=== PATIENT | male | born 1975 ===

== ENCOUNTER 2020-06-05 21:03 | Inpatient (IN) | payer OTHER ==
[~2020-06-05] VITALS: Ht 162.6 cm; Wt 79.9 kg
[~2020-06-05 21:03] MED LIST: CODE BLUE RESPONSE XX ONE; EPINEPHRINE SYRINGE 0.1 MG/ML, 10ML ONE; NALOXONE 1 MG/ML, 2ML ONE
[2020-06-05] MEDS ORDERED: ALBUTEROL 0.5%, 20ML NPPB ONE (21:30)
[2020-06-05] MEDS ORDERED: CALCIUM CHLORIDE 10%, 10ML SYR IVPush ONE (21:30)
[2020-06-05] MEDS ORDERED: PLEASE ENTER HEIGHT AND WEIGHT MC SCH (21:30)
[2020-06-05] MEDS ORDERED: INSULIN REGULAR 100 UNITS/ML, 3ML VIAL IVPush ONE (21:30)
[2020-06-05] MEDS ORDERED: PLEASE ENTER ALLERGIES MC SCH (21:30)
[2020-06-05] MEDS ORDERED: SODIUM BICARB 8.4%, 50ML SYRINGE IVPush ONE (21:30)
[2020-06-05] MEDS ORDERED: SODIUM BICARB 8.4%, 50ML SYRINGE ONE (21:34)
[2020-06-05] MEDS ORDERED: CALCIUM CHLORIDE 10%, 10ML SYR ONE ×2 (21:34)
[2020-06-05] MEDS ORDERED: SODIUM BICARBONATE 1 MEQ/ML, 50ML VIAL ONE (21:34)
[2020-06-05 21:45] LABS: BASOPHILS # (AUTO) 0.06 x10^3/uL (0-0.1); BASOPHILS % (AUTO) 0 % (0-1); EOSINOPHILS # (AUTO) 0.31 x10^3/uL (0-0.4); EOSINOPHILS % (AUTO) 2 % (1-7); LYMPHOCYTES # (AUTO) 4.92 x10^3/uL (1-3.4); LYMPHOCYTES % (AUTO) 30 % (22-44); MD NO; MEAN CORPUSCULAR HEMOGLOBIN 25.7 pg (27.5-34.5); MEAN CORPUSCULAR HGB CONC 31.6 g/dL (33.2-36.2); MEAN PLATELET VOLUME 8.7 fL (7.4-10.4); MONOCYTES # (AUTO) 0.79 x10^3/uL (0.2-0.8); MONOCYTES % (AUTO) 5 % (2-9); NEUTROPHILS # (AUTO) 10.13 x10^3/uL (1.8-6.8); NEUTROPHILS % (AUTO) 63 % (42-75); PLATELET COUNT 278 x10^3/uL (130-400); RED BLOOD COUNT 4.81 x10^6/uL (4.38-5.82)
[2020-06-05 21:57] LABS: ALANINE AMINOTRANSFERASE 505 U/L (12-78); ALBUMIN 2.5 g/dL (3.4-5.0); CHLORIDE 99 mmol/L (98-107); CREATININE 1.53 mg/dL (0.7-1.3)
[2020-06-05] MEDS: SODIUM BICARBONATE 8.4% 150 MEQ in DEXTROSE 5% 1,000 ML IV SCH (22:00)
[2020-06-05] MEDS ORDERED: NOREPINEPHRINE 8 MG in SODIUM CHLORIDE 0.9% 242 ML IV PRN ×3 (22:00→23:39)
[2020-06-05 22:01] LABS: ALKALINE PHOSPHATASE 123 U/L (45-117); BILIRUBIN,TOTAL 0.2 mg/dL (0.2-1.0); TOTAL PROTEIN 6.8 g/dL (6.4-8.2); TROPONIN I 0.022 ng/mL (0.000-0.045)
[2020-06-05 22:06] LABS: CALCIUM 17.1 mg/dL (8.5-10.1)
[2020-06-05 22:07] LABS: ANION GAP 23 mmol/L (5-15)
--- NOTE | 2020-06-05 22:20 | NUR ---
IT WAS REPORTED BY [facility] AND FAMILY THAT PT WAS EATING PRIM RIM AT [facility] WHEN PT APPEARED TO CHOKE WHILE EATING PRIM RIB. CPR WAS PERFORMED BY BYSTANDERS AND [facility]. PT WAS IN PEA AT ER CONTACT WITH NO ADVANCED AIRWAY ESTABLISHED. BVM, ACLS CPR AND OPA WAS PROVIDED FOR PT VENTALATION ON HIGH FLOW O2. PT HAD copious amounts of vomit and airway. PT SUCTIONED MULTIPLE TIMES UNTIL AIRWAY WAS CLEAR ENOUGH FOR ET TUB TO BE PLACED. LARGE PIECES OF MEAT WHERE IN AIRWAY. PT REGAINED PULSES BUT REMAINED WITH GCS OF 3.
--- NOTE | 2020-06-05 22:31 | NUR ---
PT STARTED ON 0.1 OF LEVOPHED WITH PT B/P STILL LOW. PROVIDER GAVE VERBAL ORDER TO MOVE LEVOPHED TO 0.7 AND BACK OFF FROM THERE TO OBTAIN A ACCEPTABLE BLOOD PRESSURE PT LEVO BACKED DOWN TO 0.20 AT THIS TIME
[2020-06-05] MEDS ORDERED: SODIUM PHOSPHATE 20 MMOL in SODIUM CHLORIDE 0.9% 250 ML IVPB PRN ×2 (22:56→23:44)
[2020-06-05] MEDS ORDERED: ACETAMINOPHEN 325 MG TABLET PO PRN (23:00)
[2020-06-05] MEDS ORDERED: KSCALE TO 4.0 IV SCH (23:00)
[2020-06-05] MEDS ORDERED: FENTANYL PF 1,000 MCG in SODIUM CHLORIDE 0.9% 80 ML IV PRN (23:00)
[2020-06-05] MEDS ORDERED: CALCIUM CHLORIDE 13.6 MEQ in SODIUM CHLORIDE 0.9% 100 ML IVPB PRN (23:00)
[2020-06-05] MEDS ORDERED: ONDANSETRON 2MG/ML, 2ML IVPush PRN (23:00)
[2020-06-05] MEDS ORDERED: ENALAPRILAT 1.25 MG/ML, 2ML IVPush PRN (23:00)
[2020-06-05] MEDS ORDERED: morphine SULFATE 10 MG/ML, 1ML IVPush PRN (23:00)
[2020-06-05] MEDS ORDERED: ARTIFICIAL TEARS OINT 3.5 GM EACHEYE SCH (23:00)
[2020-06-05] MEDS ORDERED: MAGNESIUM SULFATE 1 GM in DEXTROSE 5% 100 ML IVPB PRN (23:00)
[2020-06-05] MEDS: BUSPIRONE 10 MG TABLET NG SCH (23:00)
[2020-06-05] MEDS ORDERED: LABETALOL 5MG/ML, 20ML IVPush PRN (23:00)
[2020-06-05] MEDS ORDERED: INSULIN LISPRO 100 UNITS/ML, PEN SQ-INSULIN PRN (23:30)
[2020-06-05] MEDS ORDERED: CEFTRIAXONE PMX 1GM/50ML 50 ML IV ONE (23:30)
[2020-06-05] MEDS ORDERED: PROPOFOL 100 ML IV PRN (23:39)
[2020-06-06] MEDS ORDERED: LACTULOSE 20 GM/30 ML UDC NG PRN
[2020-06-06] MEDS ORDERED: CALCIUM CHLORIDE 13.6 MEQ in SODIUM CHLORIDE 0.9% 100 ML IVPB PRN
[2020-06-06] MEDS ORDERED: VECURONIUM 10 MG IVPush PRN
[2020-06-06] MEDS ORDERED: LIDOCAINE-MPF 1%, 2ML ENDO PRN
[2020-06-06] MEDS ORDERED: DEXTROSE 50%, 50ML SYRINGE IVPush PRN
[2020-06-06] MEDS ORDERED: FENTANYL PF 1,000 MCG in SODIUM CHLORIDE 0.9% 80 ML IV PRN
[2020-06-06] MEDS ORDERED: SENNA 176 MG/5 ML ORAL SOL NG PRN
[2020-06-06] MEDS ORDERED: PHARMACY MAY ADJ FOR RENAL FX MC SCH
[2020-06-06] MEDS ORDERED: DEXTROSE 4 GM TAB.CHEW PO PRN
[2020-06-06] MEDS ORDERED: BISACODYL 10 MG SUPP PR PRN
[2020-06-06] MEDS ORDERED: MIDAZOLAM 1 MG/ML, 2ML IVPush PRN
[2020-06-06] MEDS ORDERED: SENNA/DOCUSATE TABLET NG PRN
[2020-06-06] MEDS ORDERED: FENTANYL PF 100 MCG/2ML IVPush PRN
[2020-06-06] MEDS ORDERED: GLUCAGON 1 MG IM PRN
--- NOTE | 2020-06-06 00:08 | NUR ---
PT PLACED ON [employer] (powering [employer]) COOLING SYSTEM WITH [employer] RANGE OF 33 DEG C. PER UNIT ABBY SOUZA
[2020-06-06 00:15] LABS: TROPONIN I 0.456 ng/mL (0.000-0.045)
[2020-06-06] MEDS ORDERED: CEFTRIAXONE PMX 1GM/50ML 50 ML ONE (00:26)
[2020-06-06 00:28] LABS: INTERNATIONAL NORMALIZED RATIO 0.98 (0.93-1.1); PROTHROMBIN TIME 10.4 Seconds (9.6-11.5)
--- NOTE | 2020-06-06 00:37 | NUR ---
PT SISTER "CHANDRIKA" IN [place] PHONE [phone] WOULD LIKE TO BE UPDATED WITH ANY CHANGES PT OTHER "DEIRDRE" SISTER PHONE = [phone]
--- NOTE | 2020-06-06 00:39 | NUR ---
PT X PHONE [phone]
[2020-06-06] MEDS ORDERED: PIPERACILLIN/TAZO/PMX 3.375GM 50 ML ONE ×4 (00:49→20:08)
[2020-06-06] MEDS ORDERED: HEPARIN 5,000 UNITS/ML, 1ML ONE ×3 (00:50→17:08)
[2020-06-06] MEDS ORDERED: FAMOTIDINE 20 MG/2 ML ONE ×2 (00:50→08:27)
[2020-06-06] MEDS: FAMOTIDINE 20 MG/2 ML IV SCH ×2 (00:55→12:00)
[2020-06-06] MEDS: HEPARIN 5,000 UNITS/ML, 1ML SQ SCH ×4 (00:56→23:00)
--- NOTE | 2020-06-06 01:45 | NUR ---
Spoke with Sherri from [facility] as patient is possibly a canidate for Organ donation. Sherri states that at this time patient is suitable for organ donation, but more information will be needed regarding patients care and we should be getting another phone call in about 30 minutes asking for more information. Reference # for case at this time is [id number] None of this above information has been relayed to ex at bedside as donor network asked that none of this information is relayed to ANY family/friends of patient as the donor network team themselves will have this conversation with the family/friends of patient when the time is ready.
[2020-06-06] MEDS ORDERED: INSULIN INFUSION FOR ICU PROTOCOL XX PRN (04:00)
[2020-06-06] MEDS: KSCALE TO 4.0 IV SCH ×6 (04:00→20:00)
[2020-06-06] MEDS ORDERED: REGULAR INSULIN 100 UNITS in SODIUM CHLORIDE 0.9% 99 ML IV PRN (04:00)
[2020-06-06] MEDS ORDERED: INSULIN REGULAR 100 UNITS/ML, 3ML VIAL IV ONE ×2 (04:00→11:00)
[2020-06-06 04:18] LABS: MEAN CORPUSCULAR HEMOGLOBIN 25.2 pg (27.5-34.5); MEAN CORPUSCULAR HGB CONC 31.1 g/dL (33.2-36.2); MEAN PLATELET VOLUME 8.1 fL (7.4-10.4); PLATELET COUNT 425 x10^3/uL (130-400); RED BLOOD COUNT 5.31 x10^6/uL (4.38-5.82); RED CELL DISTRIBUTION WIDTH 13.6 % (9.4-14.8)
[2020-06-06] MEDS ORDERED: INSULIN SINGLE DOSE, ER ONE (04:21)
[2020-06-06 04:24] LABS: ANION GAP 12 mmol/L (5-15); CALCIUM 9.4 mg/dL (8.5-10.1); CHLORIDE 104 mmol/L (98-107); CREATININE 1.57 mg/dL (0.7-1.3); TRIGLYCERIDES 198 mg/dL (50-200)
[2020-06-06 04:41] LABS: BASOPHILS % (AUTO) 0 % (0-1); EOSINOPHILS # (AUTO) 0.04 x10^3/uL (0-0.4); EOSINOPHILS % (AUTO) 0 % (1-7); LYMPHOCYTES # (AUTO) 0.66 x10^3/uL (1-3.4); LYMPHOCYTES % (AUTO) 2 % (22-44); MD SCAN; MONOCYTES # (AUTO) 0.09 x10^3/uL (0.2-0.8); MONOCYTES % (AUTO) 0 % (2-9); NEUTROPHILS # (AUTO) 26.71 x10^3/uL (1.8-6.8); NEUTROPHILS % (AUTO) 97 % (42-75)
[2020-06-06 05:38] LABS: MICROSCOPIC INDICATED
[2020-06-06 05:44] LABS: AMPHETAMINE SCREEN, URINE Negative (Negative); BARBITURATE SCREEN, URINE Negative (Negative); BENZODIAZEPINE SCREEN, URINE Negative (Negative); CANNABINOID SCREEN, URINE Negative (Negative); COCAINE SCREEN, URINE Negative (Negative); METHADONE SCREEN, URINE Negative (Negative); OPIATE SCREEN, URINE Negative (Negative)
--- NOTE | 2020-06-06 05:55 | NUR ---
per insulin infusion for intensive care protocol sheet, decrease of 43mg/dL/hr since last sugar, no change in insulin infusion rate
[2020-06-06] MEDS: PIPERACILLIN/TAZO/PMX 3.375GM 50 ML IV SCH ×4 (06:00→18:00)
--- NOTE | 2020-06-06 06:19 | NUR ---
AWATING MEDS FROM PHARMACY FOR PT K SCALE ORDERS
[2020-06-06] MEDS ORDERED: ALBUTEROL SULFATE 2.5 MG/3 ML ONE ×4 (06:20→19:03)
[2020-06-06] MEDS: ALBUTEROL SULFATE 2.5 MG/3 ML INLINE SCH ×5 (06:21→19:14)
--- NOTE | 2020-06-06 06:21 | NUR ---
PT RESTING IN BED, PT STILL HAS GCS OF 3 WITH OUT SEDATION. PT B/P MAINTAINED WITH LEVOPHED TO A MAP ABOVE 80. VETERANS' COUNSELOR WILL CONTINUE TO MONITOR PT VSS
[2020-06-06] MEDS ORDERED: POTASSIUM CHLORIDE PMX 100 ML IV ONE (06:30)
[2020-06-06] MEDS: MAGNESIUM SULFATE 1 GM in DEXTROSE 5% 100 ML IVPB PRN ×2 (06:36→17:20)
[2020-06-06] MEDS: BUSPIRONE 10 MG TABLET NG SCH ×5 (07:00→16:51)
[2020-06-06] MEDS: SODIUM CHLORIDE FLUSH 10ML SYR IVF SCH ×2 (08:30→21:00)
[2020-06-06] MEDS: ARTIFICIAL TEARS OINT 3.5 GM EACHEYE SCH ×3 (08:31→16:09)
[2020-06-06] MEDS: NOREPINEPHRINE 8 MG in SODIUM CHLORIDE 0.9% 242 ML IV PRN (08:42)
[2020-06-06] MEDS ORDERED: POTASSIUM CHLORIDE 30 MEQ in SODIUM CHLORIDE 0.9% 100 ML IV ONE ×4 (09:00→21:30)
[2020-06-06] MEDS ORDERED: FAMOTIDINE 20 MG/2 ML IVPush SCH (09:00)
[2020-06-06] MEDS ORDERED: SODIUM PHOSPHATE 20 MMOL in SODIUM CHLORIDE 0.9% 250 ML IV ONE (09:30)
[2020-06-06] MEDS ORDERED: SODIUM PHOSPHATE 20 MMOL in SODIUM CHLORIDE 0.9% 500 ML IV ONE (10:01)
--- NOTE | 2020-06-06 10:03 | NUR ---
BEDSIDE REPORT FROM JAMES BECK. PT RESTING IN [facility] INTUBATED WITH CLEAR BILATERAL LUNG SOUNDS. HYPOTHERMIA PROTOCOL IN PLACE AND IN COOLING PHASE. CURRENT CORE TEMP: 33.3C. HOB ELEVATED, OG IN PLACE. VENT: FiO2 81, PEEP 8 RR 18. ET 24 AT THE LIP WO GASTRIC SOUNDS. MAP >60, MANAGED WITH LEVOPHED AND MONITORED BY A-LINE. GOOD DISTAL CAP REFILL; PWD, W GOOD URINE OUTPUT. NSR ON MONITOR, HR 84.
--- NOTE | 2020-06-06 10:18 | NUR ---
CONTACTED [facility] REGARDING FSBS 700 AND ADJUSTMENT IN INSULIN ACCORDING TO PROTOCOL. NO ADDITIONAL ORDERS RECEIVED. TO CONTACT [facility] WITH FOLLOW UP FSBS IF NO IMPROVEMENT NOTED.
--- NOTE | 2020-06-06 10:21 | NUR ---
DISCUSSED CRITICAL LAB RESULT OF GLUCOSE AND CURRENT INSULIN GTT PROTOCOL WITH DR MYRICK. PER MD CONTINUE WITH PROTOCOL AND CALL WITH NEXT RESULT. INSULIN GTT VERIFIED WITH BHAVANA RAMIREZ AT THIS TIME.
[2020-06-06] MEDS ORDERED: DEXTROSE 50%, 50ML SYRINGE IV PRN (11:00)
[2020-06-06 11:17] LABS: ANION GAP 13 mmol/L (5-15); CALCIUM 9.2 mg/dL (8.5-10.1); CHLORIDE 107 mmol/L (98-107); CREATININE 1.77 mg/dL (0.7-1.3)
--- NOTE | 2020-06-06 11:37 | NUR ---
[facility]FTU UPDATED TO CRITICAL LABS AND ADJUSTMENTS MADE TO LEVOPHED. NO NEW ORDERS RECEIVED AT THIS TIME. MAP >60. NO MOTTELING NOTED.
--- NOTE | 2020-06-06 11:43 | NUR ---
PHARMACIST CONTACTED, TO SEND [facility] GTT
--- NOTE | 2020-06-06 13:09 | NUR ---
CONTINUED CLOSE MONITORING. HYPOTHERMIA PROTOCOL CONTINUED. NO SHIVERING NOTED. NO SEDATION IN PLACE. CONTINUED UNRESPONSIVE TO PAINFUL STIMULI. MAP SUFFICIENTLY MAINTAINED WITH VASOPRESSORS, <3S DISTAL CAP REFILL. EX AT BEDSIDE AND UPDATED TO POC. ALL QUESTIONS ANSWERED. DR MYRICK AWARE AND HAS AGREED TO SPEAK WITH FAMILY. ECHO CANCELLED PER GENAROU ORDER
[2020-06-06] MEDS: SODIUM BICARBONATE 8.4% 150 MEQ in DEXTROSE 5% 1,000 ML IV SCH ×2 (14:05→21:00)
[2020-06-06 14:35] LABS: ANION GAP 11 mmol/L (5-15); CALCIUM 9.4 mg/dL (8.5-10.1); CHLORIDE 106 mmol/L (98-107)
[2020-06-06 14:38] LABS: CREATININE 1.92 mg/dL (0.7-1.3)
--- NOTE | 2020-06-06 14:46 | NUR ---
HYPOTENSION REFRACTORY TO PRESSER. DEFTU MADE AWARE. NEW ORDERS RECEIVED. REQUEST SENT TO PHARMACY FOR ADMISSIONAL MEDICATIONS
[2020-06-06] MEDS: VASOPRESSIN 20 UNIT in SODIUM CHLORIDE 0.9% 99 ML IV PRN (15:32)
--- NOTE | 2020-06-06 15:44 | NUR ---
IMPROVED MAP. ABLE TO DOWN TITRATE LEVOPHED. WILL HOLD VASOPRESSIN AT THIS TIME. DISTAL CAP REFILL REMAINS <3S; NO DECREASE IN UO NOTED. FAMILY REMAINS AT BEDSIDE.
--- NOTE | 2020-06-06 16:13 | NUR ---
TASK RN: REPORT OF PT FROM JAMES BATEMAN AND ASSUMING CARE OF PT AT THIS TIME. PT GLUCOSE INCREASED ON PUMP PER PROTOCOL. MEDICATIONS REQUESTED FROM PHARMACY VIA TUBE SYSTEM AT THIS TIME. CRITICAL RESULT RECEIVED FOR PT POTASSIUM. PHARMACY NOTIFIED OF CRITICAL VALUE. PT IS IN GURNEY WITH YADIEL AT THIS TIME.
--- NOTE | 2020-06-06 17:07 | NUR ---
MAG 1.7, MEDICATION REQUESTED FROM PHARMACY
--- NOTE | 2020-06-06 19:11 | NUR ---
BEDSIDE REPORT TO JAMES LOPEZ.
--- NOTE | 2020-06-06 19:23 | NUR ---
REPORT RECEIVED FROM JAMES PETER. WILL RESUME PATIENT CARE. PATIENT'S VITAL SIGNS STABLE. BLOOD GLUCOSE 511, NO TITRATION NECESSARY. GOOD CAP REFILL PRESENT BILATERALLY IN UPPER EXTREMITIES AND LOWER. 3+ PITTING EDEMA IN LOWER EXTREMITIES. PATIENT TOLERATING INTERVENTIONS WELL. PATIENT WILL BE TAKEN TO CT VIA GURNEY AND PLACED ON ICU BED.
--- NOTE | 2020-06-06 19:30 | NUR ---
PATIENT TAKEN TO CT WITH RESP, RN, TECH, VENT, MONITOR. PATIENT TOLERATED WELL. PATIENT MOVED TO ICU HOSPITAL BED TO IMPROVE PATIENT OUTCOMES. PATIENT REPOSITIONED INTO SUPINE FOR Q2HR POSITION CHANGES.
[2020-06-06] MEDS ORDERED: EPINEPHRINE SYRINGE 0.1 MG/ML, 10ML ONE (20:01)
[2020-06-06] MEDS ORDERED: SODIUM BICARBONATE 1 MEQ/ML, 50ML VIAL ONE (20:01)
--- NOTE | 2020-06-06 20:36 | NUR ---
LABS DRAWN AND SENT TO LAB.
--- NOTE | 2020-06-06 20:46 | NUR ---
TASK RN: HOSPITALIST CONTACTED REGARDING CT FINDINGS. PLAN TO CONTACT NEUROLOGY FOR CONSULT.
--- NOTE | 2020-06-06 21:05 | NUR ---
PHYSICIAN AT BEDSIDE WITH FAMILY NOTIFYING PATIENT'S FAMILY OF CT RESULTS. FAMILY TOLERATED NEWS WELL. INFORMATION WAS PROVIDED TO THE FAMILY REGARDING PLAN OF CARE, AND PATIENT'S WISHES. TRACY WILL EVALUATE PATIENT IN THE MORNING.
--- NOTE | 2020-06-06 21:17 | NUR ---
PT'S BS WAS 467; NO CHANGE NOTED BY PROTOCOL. DUAL CHECK WITH JAMES PETER
--- NOTE | 2020-06-06 22:31 | NUR ---
ABG COLLECTED TO MONITOR VENT SETTING CHANGES. RESPIRATORY AT BEDSIDE.
[2020-06-07] MEDS ORDERED: HEPARIN 5,000 UNITS/ML, 1ML ONE (00:14)
[2020-06-07] MEDS ORDERED: PIPERACILLIN/TAZO/PMX 3.375GM 50 ML ONE (00:14)
[2020-06-07] MEDS ORDERED: POTASSIUM CHLORIDE 30 MEQ in SODIUM CHLORIDE 0.9% 100 ML IV ONE ×5 (00:30→17:00)
[2020-06-07] MEDS: NOREPINEPHRINE 8 MG in SODIUM CHLORIDE 0.9% 242 ML IV PRN (01:25)
[2020-06-07] MEDS: MAGNESIUM SULFATE 1 GM in DEXTROSE 5% 100 ML IVPB PRN ×3 (01:30→16:52)
[2020-06-07] MEDS: REGULAR INSULIN 100 UNITS in SODIUM CHLORIDE 0.9% 99 ML IV PRN ×3 (02:15→13:25)
[2020-06-07 03:47] LABS: ANION GAP 8 mmol/L (5-15); CALCIUM 9.4 mg/dL (8.5-10.1); CHLORIDE 113 mmol/L (98-107); CREATININE 1.63 mg/dL (0.7-1.3)
[2020-06-07 03:51] LABS: MEAN CORPUSCULAR HEMOGLOBIN 25.8 pg (27.5-34.5); MEAN CORPUSCULAR HGB CONC 31.9 g/dL (33.2-36.2); MEAN PLATELET VOLUME 8.4 fL (7.4-10.4); PLATELET COUNT 257 x10^3/uL (130-400); RED BLOOD COUNT 4.85 x10^6/uL (4.38-5.82); RED CELL DISTRIBUTION WIDTH 13.2 % (9.4-14.8)
[2020-06-07 04:00] VITALS: BP 134/67
[2020-06-07] MEDS: KSCALE TO 4.0 IV SCH ×6 (04:00→20:00)
[2020-06-07] MEDS: ALBUTEROL SULFATE 2.5 MG/3 ML INLINE SCH ×5 (04:00→14:16)
[2020-06-07] MEDS: VASOPRESSIN 20 UNIT in SODIUM CHLORIDE 0.9% 99 ML IV PRN ×2 (04:07→13:25)
[2020-06-07 04:32] LABS: MD YES
[2020-06-07 05:14] LABS: <PLATELET ESTIMATE> ADEQUATE; <PLT MORPHOLOGY> NORMAL PLT MORPH; <RBC MORPHOLOGY> NORMAL; BAND#(MANUAL) 0.65 x10^3/uL; BANDS%(MANUAL) 4 % (0-7); LYMPH#(MANUAL) 0.65 x10^3/uL (1-3.4); LYMPHS% (MANUAL) 4 % (22-44); SEGS% (MANUAL) 92 % (42-75)
[2020-06-07] MEDS: PIPERACILLIN/TAZO/PMX 3.375GM 50 ML IV SCH ×2 (06:12)
[2020-06-07] MEDS ORDERED: VECURONIUM 10 MG IVPush PRN (07:30)
[2020-06-07] MEDS: POTASSIUM CHLORIDE 20 MEQ TAB.ER.PRT PO SCH ×2 (07:51→17:19)
[2020-06-07] MEDS: HEPARIN 5,000 UNITS/ML, 1ML SQ SCH ×2 (07:51→16:52)
[2020-06-07] MEDS: FAMOTIDINE 20 MG/2 ML IVPush SCH (07:52)
[2020-06-07] MEDS: SODIUM CHLORIDE FLUSH 10ML SYR IVF SCH ×2 (07:52→23:44)
[2020-06-07] MEDS: ARTIFICIAL TEARS OINT 3.5 GM EACHEYE SCH ×3 (08:00→18:36)
[2020-06-07] MEDS: AMPICILLIN/SULBACTAM 3 GM in SODIUM CHLORIDE 0.9% 100 ML IV SCH ×3 (09:57→21:11)
[2020-06-07] MEDS: BUSPIRONE 10 MG TABLET NG SCH ×3 (10:10→17:19)
[2020-06-07] MEDS: NOREPINEPHRINE 32 MG in SODIUM CHLORIDE 0.9% 218 ML IV PRN ×2 (13:26→23:44)
[2020-06-07] MEDS ORDERED: PHENYLEPHRINE 50 MG in SODIUM CHLORIDE 0.9% 245 ML IV PRN (20:00)
[2020-06-07] MEDS ORDERED: MAGNESIUM SULFATE/D5W 100 ML IVPB PRN (21:30)
[2020-06-08] MEDS: VASOPRESSIN 20 UNIT in SODIUM CHLORIDE 0.9% 99 ML IV PRN ×2 (00:41→07:55)
[2020-06-08] MEDS: HEPARIN 5,000 UNITS/ML, 1ML SQ SCH ×2 (00:41→08:21)
[2020-06-08] MEDS: ARTIFICIAL TEARS OINT 3.5 GM EACHEYE SCH ×2 (00:42→08:21)
[2020-06-08] MEDS: AMPICILLIN/SULBACTAM 3 GM in SODIUM CHLORIDE 0.9% 100 ML IV SCH ×2 (03:24→08:23)
[2020-06-08 03:42] LABS: MEAN CORPUSCULAR HEMOGLOBIN 25.3 pg (27.5-34.5); MEAN CORPUSCULAR HGB CONC 31.6 g/dL (33.2-36.2); MEAN PLATELET VOLUME 7.8 fL (7.4-10.4); PLATELET COUNT 212 x10^3/uL (130-400); RED BLOOD COUNT 4.57 x10^6/uL (4.38-5.82); RED CELL DISTRIBUTION WIDTH 13.6 % (9.4-14.8)
[2020-06-08] MEDS: KSCALE TO 4.0 IV SCH ×2 (03:55)
[2020-06-08 04:00] VITALS: BP 93/65
[2020-06-08 04:33] LABS: MD YES
[2020-06-08 04:36] LABS: BAND#(MANUAL) 2.45 x10^3/uL; BANDS%(MANUAL) 15 % (0-7); EOS#(MANUAL) 0.65 x10^3/uL (0.0-0.4); EOS% (MANUAL) 4 % (1-7); LYMPH#(MANUAL) 0.65 x10^3/uL (1-3.4); LYMPHS% (MANUAL) 4 % (22-44); MONOS#(MANUAL) 0.65 x10^3/uL (0.3-2.7); MONOS% (MANUAL) 4 % (2-9); REACTIVE LYMPHS # (MANUAL) 0.16 x10^3/uL (0-0); REACTIVE LYMPHS % (MANUAL) 1 % (0-0); SEGS% (MANUAL) 72 % (42-75)
[2020-06-08 04:37] LABS: <PLATELET ESTIMATE> ADEQUATE; <PLT MORPHOLOGY> NORMAL PLT MORPH; <RBC MORPHOLOGY> NORMAL; ANION GAP 10 mmol/L (5-15); CALCIUM 8.3 mg/dL (8.5-10.1); CHLORIDE 116 mmol/L (98-107); CREATININE 2.07 mg/dL (0.7-1.3)
[2020-06-08] MEDS: NOREPINEPHRINE 32 MG in SODIUM CHLORIDE 0.9% 218 ML IV PRN (07:55)
[2020-06-08] MEDS ORDERED: INSULIN GLARGINE 100 UNITS/ML, PEN SQ-INSULIN SCH (08:00)
[2020-06-08] MEDS: SODIUM CHLORIDE FLUSH 10ML SYR IVF SCH (08:21)
[2020-06-08] MEDS: FAMOTIDINE 20 MG/2 ML IVPush SCH (08:21)
[2020-06-08] MEDS ORDERED: INSULIN LISPRO 100 UNITS/ML, PEN SQ-INSULIN SCH (11:00)
== END 2020-06-08 10:06 | disposition expired | DRG 208 ==
LOC: SUATTDRO 22:56 → ED 06-06 00:26 → EDIP 06-06 00:48 → CCU 06-07 00:44 → UNDODISIN 06-08 10:06
PROVIDERS: ADMIT Hospitalist; ATTEND Internal Medicine
PROC: 5A1945Z Respiratory Ventilation, 24-96 Consecutive Hours (ICD-10-PCS; principal; 2020-06-06)
PROC: 0BH17EZ Insertion of Endotracheal Airway into Trachea, Via Natural or Artificial Opening (ICD-10-PCS; 2020-06-06)
PROC: 0T9B70Z Drainage of Bladder with Drainage Device, Via Natural or Artificial Opening (ICD-10-PCS; 2020-06-06)
DX: U07.1 COVID-19 (principal); A41.89 Other specified sepsis; J96.01 Acute respiratory failure with hypoxia; J69.0 Pneumonitis due to inhalation of food and vomit; G93.41 Metabolic encephalopathy; N17.0 Acute kidney failure with tubular necrosis; R65.21 Severe sepsis with septic shock; E43 Unspecified severe protein-calorie malnutrition; J12.89 Other viral pneumonia; K72.00 Acute and subacute hepatic failure without coma; E87.2 Acidosis; J81.1 Chronic pulmonary edema; G93.1 Anoxic brain damage, not elsewhere classified; I46.9 Cardiac arrest, cause unspecified; I95.9 Hypotension, unspecified; E11.65 Type 2 diabetes mellitus with hyperglycemia; E87.6 Hypokalemia; E83.52 Hypercalcemia; R74.0 Nonspecific elevation of levels of transaminase and lactic acid dehydrogenase [LDH]; D72.829 Elevated white blood cell count, unspecified; D47.3 Essential (hemorrhagic) thrombocythemia; E83.42 Hypomagnesemia; E88.09 Other disorders of plasma-protein metabolism, not elsewhere classified; E87.5 Hyperkalemia; Z68.30 Body mass index [BMI] 30.0-30.9, adult
CPT/HCPCS: 36415; 36600; 96361; 96374; 96375; 99291; 99292; J3490; J7613; 70450; 71045; 80047; 80048; 80053; 80307; 81001; 82330; 82533; 82803; 82947; 82962; 83605; 83735; 83880; 84100; 84132; 84478; 84484; 85025; 85610; 87040; 87070; 87077; 87081; 87147; 87186; 87205; 92950; 93005; 94002; 94003; 94640; G0378; J0295; J0696; J1644; J1815; J2543; J3475; J3480; J7070; J2310; J2370; J7040; J7050

== ENCOUNTER 2020-06-08 10:06 | Inpatient (IN) | payer OTHER ==
[~2020-06-08] VITALS: Ht 162.6 cm; Wt 79.9 kg
[2020-06-08] MEDS ORDERED: MAGNESIUM SULFATE PMX 2GM/50ML 50 ML IVPB PRN (14:30)
[2020-06-08] MEDS ORDERED: POTASSIUM CHLORIDE PMX 20MEQ/100 ML IVPB PRN ×2 (14:30→15:30)
[2020-06-08] MEDS ORDERED: CALCIUM CHLORIDE 13.6 MEQ in SODIUM CHLORIDE 0.9% 50 ML IV PRN (14:30)
[2020-06-08] MEDS ORDERED: MAGNESIUM SULFATE PMX 4GM/100M 100 ML IVPB PRN (14:30)
[2020-06-08] MEDS ORDERED: PIPERACILLIN/TAZO 3.375 GM in SODIUM CHLORIDE 0.9% 50 ML IVPB SCH (14:30)
[2020-06-08] MEDS ORDERED: REGULAR INSULIN 100 UNITS in SODIUM CHLORIDE 0.9% 99 ML IV SCH (14:30)
[2020-06-08] MEDS ORDERED: DOPAMINE/D5W PMX 250 ML IV PRN (14:30)
[2020-06-08] MEDS ORDERED: DEXTROSE 50%, 50ML SYRINGE IVPush PRN (14:30)
[2020-06-08] MEDS ORDERED: POTASSIUM CHLORIDE 40 MEQ in SODIUM CHLORIDE 0.9% 100 ML IV PRN ×3 (14:30→16:00)
[2020-06-08] MEDS ORDERED: PANTOPRAZOLE 40 MG IV IV SCH (14:30)
[2020-06-08] MEDS: PIPERACILLIN/TAZO 3.375 GM in SODIUM CHLORIDE 0.9% 50 ML IVPB SCH (14:30)
[2020-06-08] MEDS ORDERED: DEXTROSE 5% 1,000 ML IV SCH ×3 (14:30→15:24)
[2020-06-08] MEDS ORDERED: LEVOTHYROXINE 200 MCG in SODIUM CHLORIDE 0.9% 500 ML IV SCH (14:30)
[2020-06-08] MEDS ORDERED: FLUCONAZOLE 200 MG/100 ML 100 ML IV PRN (14:30)
[2020-06-08 14:55] LABS: MEAN CORPUSCULAR HEMOGLOBIN 25.8 pg (27.5-34.5); MEAN CORPUSCULAR HGB CONC 32.8 g/dL (33.2-36.2); MEAN CORPUSCULAR VOLUME 78.8 fL (81-97); PLATELET COUNT 195 x10^3/uL (130-400); RED BLOOD COUNT 4.56 x10^6/uL (4.38-5.82); RED CELL DISTRIBUTION WIDTH 13.7 % (9.4-14.8)
[2020-06-08] MEDS ORDERED: METHYLPREDNISOLONE SOD SUCC IV SCH (15:00)
[2020-06-08] MEDS: ALBUTEROL SULFATE 2.5MG/0.5ML NEB SCH ×3 (15:00→23:00)
[2020-06-08] MEDS ORDERED: DEXTROSE 5% IV SCH (15:00)
[2020-06-08 15:04] LABS: INTERNATIONAL NORMALIZED RATIO 1.32 (0.93-1.1)
[2020-06-08 15:07] LABS: ALBUMIN 1.6 g/dL (3.4-5.0); ANION GAP 10 mmol/L (5-15); CHLORIDE 113 mmol/L (98-107)
[2020-06-08 15:12] LABS: ALANINE AMINOTRANSFERASE 334 U/L (12-78); ALKALINE PHOSPHATASE 146 U/L (45-117); BILIRUBIN, DIRECT 0.3 mg/dL (0.1-0.2); BILIRUBIN,INDIRECT 0.3 mg/dL (0.0-2.0); BILIRUBIN,TOTAL 0.6 mg/dL (0.2-1.0); CREATININE 2.48 mg/dL (0.7-1.3)
[2020-06-08] MEDS ORDERED: POTASSIUM PHOSPHATE 30 MMOL in SODIUM CHLORIDE 0.9% 250 ML IV PRN (15:30)
[2020-06-08] MEDS ORDERED: POTASSIUM CHLORIDE 60 MEQ in SODIUM CHLORIDE 0.9% 100 ML IV PRN (15:30)
[2020-06-08] MEDS ORDERED: POTASSIUM PHOSPHATE 15 MMOL in SODIUM CHLORIDE 0.9% 250 ML IV PRN (15:30)
[2020-06-08] MEDS ORDERED: POTASSIUM PHOSPHATE 21 MMOL in SODIUM CHLORIDE 0.9% 250 ML IV PRN (15:30)
[2020-06-08] MEDS ORDERED: POTASSIUM CHLORIDE PMX 100 ML IVPB PRN (16:00)
[2020-06-08] MEDS: ARTIFICIAL TEARS 15 DROP/ML BOTTLE EACHEYE SCH ×5 (16:30→22:30)
[2020-06-08] MEDS ORDERED: LACTATED RINGERS 1,000 ML IVBOLUS ONE ×2 (16:30→17:00)
[2020-06-08] MEDS ORDERED: NOREPINEPHRINE 1 MG/ML, 4ML ONE (16:34)
[2020-06-08] MEDS ORDERED: CALCIUM CHLORIDE 10%, 10ML SYR ONE (16:35)
[2020-06-08] MEDS ORDERED: SODIUM BICARB 8.4%, 50ML SYRINGE ONE (16:40)
[2020-06-08] MEDS: VASOPRESSIN 20 UNIT in SODIUM CHLORIDE 0.9% 99 ML IV PRN ×2 (16:53→20:06)
[2020-06-08] MEDS ORDERED: NOREPINEPHRINE 8 MG in SODIUM CHLORIDE 0.9% 242 ML IV PRN (17:00)
[2020-06-08] MEDS ORDERED: FUROSEMIDE 20 MG/2 ML IV ONE (17:00)
[2020-06-08] MEDS ORDERED: CALCIUM CHLORIDE 10%, 10ML SYR IVPush ONE (17:00)
[2020-06-08] MEDS ORDERED: SODIUM BICARBONATE 1 MEQ/ML, 50ML VIAL IVPush ONE (17:00)
[2020-06-08 17:04] LABS: BASOPHILS # (AUTO) 0.06 x10^3/uL (0-0.1); BASOPHILS % (AUTO) 1 % (0-1); EOSINOPHILS # (AUTO) 0.42 x10^3/uL (0-0.4); EOSINOPHILS % (AUTO) 3 % (1-7); LYMPHOCYTES # (AUTO) 0.96 x10^3/uL (1-3.4); LYMPHOCYTES % (AUTO) 8 % (22-44); MONOCYTES # (AUTO) 0.67 x10^3/uL (0.2-0.8); MONOCYTES % (AUTO) 5 % (2-9); NEUTROPHILS % (AUTO) 83 % (42-75)
[2020-06-08 17:05] LABS: MD SCAN
[2020-06-08] MEDS: INSULIN REGULAR 100 UNITS/ML, 3ML VIAL IVPush PRN ×5 (18:21→22:21)
[2020-06-08] MEDS: PHENYLEPHRINE 50 MG in SODIUM CHLORIDE 0.9% 245 ML IV PRN (19:57)
[2020-06-08] MEDS ORDERED: NOREPINEPHRINE 32 MG in SODIUM CHLORIDE 0.9% 218 ML IV PRN (21:00)
[2020-06-08 21:06] LABS: MEAN CORPUSCULAR HEMOGLOBIN 25.5 pg (27.5-34.5); MEAN CORPUSCULAR VOLUME 79.9 fL (81-97); MEAN PLATELET VOLUME 8.1 fL (7.4-10.4); PLATELET COUNT 160 x10^3/uL (130-400); RED BLOOD COUNT 4.12 x10^6/uL (4.38-5.82); RED CELL DISTRIBUTION WIDTH 13.4 % (9.4-14.8)
[2020-06-08 21:15] LABS: INTERNATIONAL NORMALIZED RATIO 1.23 (0.93-1.1); PROTHROMBIN TIME 13.1 Seconds (9.6-11.5)
[2020-06-08 21:16] LABS: MICROSCOPIC INDICATED
[2020-06-08 21:17] LABS: ALANINE AMINOTRANSFERASE 280 U/L (12-78); ALBUMIN 1.4 g/dL (3.4-5.0); ANION GAP 7 mmol/L (5-15); BILIRUBIN, DIRECT 0.4 mg/dL (0.1-0.2); CALCIUM 7.7 mg/dL (8.5-10.1); CHLORIDE 112 mmol/L (98-107)
[2020-06-08 21:20] LABS: MD YES
[2020-06-08 21:21] LABS: ALKALINE PHOSPHATASE 147 U/L (45-117); BILIRUBIN,INDIRECT 0.2 mg/dL (0.0-2.0); BILIRUBIN,TOTAL 0.6 mg/dL (0.2-1.0); TOTAL PROTEIN 5.6 g/dL (6.4-8.2); TROPONIN I 0.355 ng/mL (0.000-0.045)
[2020-06-08 21:39] LABS: <RBC MORPHOLOGY> NORMAL; BANDS%(MANUAL) 22 % (0-7); BASOS#(MANUAL) 0.07 x10^3/uL (0-0.1); BASOS% (MANUAL) 1 % (0-1); EOS% (MANUAL) 3 % (1-7); LYMPH#(MANUAL) 0.34 x10^3/uL (1-3.4); LYMPHS% (MANUAL) 5 % (22-44); METAMYELOCYTES# (MANUAL) 0.34 x10^3/uL (0-0); METAMYELOCYTES% (MANUAL) 5 % (0-1); MONOS#(MANUAL) 0.27 x10^3/uL (0.3-2.7); MONOS% (MANUAL) 4 % (2-9); SEG#(MANUAL) 4.08 x10^3/uL (1.8-6.8); SEGS% (MANUAL) 60 % (42-75)
[2020-06-08 21:40] LABS: <PLATELET ESTIMATE> ADEQUATE; <PLT MORPHOLOGY> NORMAL PLT MORPH
[2020-06-09] MEDS: PIPERACILLIN/TAZO 3.375 GM in SODIUM CHLORIDE 0.9% 50 ML IVPB SCH (00:32)
[2020-06-09] MEDS: PHENYLEPHRINE 50 MG in SODIUM CHLORIDE 0.9% 245 ML IV PRN (00:38)
[2020-06-09] MEDS ORDERED: DEXTROSE 5% 1,000 ML IV SCH (16:15)
== END 2020-06-09 06:30 | disposition expired | DRG 208 ==
LOC: CCU 10:06
PROVIDERS: ATTEND Internal Medicine
PROC: 5A1935Z Respiratory Ventilation, Less than 24 Consecutive Hours (ICD-10-PCS; principal; 2020-06-08)
PROC: 0BH17EZ Insertion of Endotracheal Airway into Trachea, Via Natural or Artificial Opening (ICD-10-PCS; 2020-06-08)
PROC: 0T9B70Z Drainage of Bladder with Drainage Device, Via Natural or Artificial Opening (ICD-10-PCS; 2020-06-08)
DX: U07.1 COVID-19 (principal); J96.00 Acute respiratory failure, unspecified whether with hypoxia or hypercapnia; J69.0 Pneumonitis due to inhalation of food and vomit; N17.0 Acute kidney failure with tubular necrosis; E43 Unspecified severe protein-calorie malnutrition; E87.2 Acidosis; G93.1 Anoxic brain damage, not elsewhere classified; R57.0 Cardiogenic shock; E11.9 Type 2 diabetes mellitus without complications; D47.3 Essential (hemorrhagic) thrombocythemia
CPT/HCPCS: 36415; 36600; 71045; 80048; 80076; 81001; 82040; 82150; 82330; 82803; 82962; 83036; 83605; 83690; 83735; 84100; 84484; 85025; 85610; 85730; 86850; 86900; 87040; 87070; 87086; 87635; 94003; 94640; G0378; J1815; J2543; J2930; J7070; C9113; J2370; J7040; J7050; J7120